=== PATIENT | male | born 1970 | race Caucasian/White ===

== ENCOUNTER → 2019-09-16 | Outpatient (CLI) | payer BC, OTHER ==
[~2019-09-16] MED LIST: CLARITIN-D 121 EAC1 PO; CLOBETASOL TOP; CRESTOR10 MG PO; VIBRAMYCIN 100100 MG PO
== END ==
LOC: SJCVCIMAG 09:51
PROVIDERS: ATTEND Family Medicine
DX: M79.662 Pain in left lower leg (principal); M79.89 Other specified soft tissue disorders

== ENCOUNTER → 2019-09-19 | Outpatient (CLI) | payer BC, OTHER ==
[~2019-09-19] VITALS: Ht 182.9 cm; Wt 131.8 kg
[2019-09-19 13:27] VITALS: BP 158/81
[2019-09-19 13:40] LABS: HEMATOCRIT 47.7 % (42.0-52.0); HEMOGLOBIN 16.6 gm/dL (14.0-18.0); MCH 33.6 pg (26.0-34.0); MCHC 34.7 g/dL (28.0-37.0); MCV 96.7 fL (80.0-100.0); RBC 4.93 mil/uL (4.50-6.00); RDW 15.5 % (10.5-14.5)
[2019-09-19 14:01] LABS: CALCIUM 9.1 mg/dL (8.5-10.1)
== END | disposition home or self-care (01) ==
LOC: CATH 09:40
PROVIDERS: ATTEND Nuclear Medicine Nuclear Cardiology
DX: I87.1 Compression of vein (principal); I87.323 Chronic venous hypertension (idiopathic) with inflammation of bilateral lower extremity; E78.5 Hyperlipidemia, unspecified; I73.9 Peripheral vascular disease, unspecified; Z98.890 Other specified postprocedural states; Z79.899 Other long term (current) drug therapy; Z87.891 Personal history of nicotine dependence

== ENCOUNTER → 2019-10-21 | Outpatient (CLI) | payer BC, OTHER | LOC: SJCVCIMAG 09:05 | PROVIDERS: ATTEND Nuclear Medicine Nuclear Cardiology | DX: I10 Essential (primary) hypertension (principal); M79.89 Other specified soft tissue disorders ==

== ENCOUNTER → 2019-11-13 | Outpatient (CLI) | payer BC, OTHER | LOC: HYPER 09:53 | PROVIDERS: ATTEND Emergency Medicine | DX: I89.0 Lymphedema, not elsewhere classified (principal); I87.303 Chronic venous hypertension (idiopathic) without complications of bilateral lower extremity; R60.0 Localized edema; L40.9 Psoriasis, unspecified; L40.52 Psoriatic arthritis mutilans; L71.9 Rosacea, unspecified; E66.01 Morbid (severe) obesity due to excess calories; Z79.01 Long term (current) use of anticoagulants; Z79.82 Long term (current) use of aspirin; Z87.891 Personal history of nicotine dependence; Z95.820 Peripheral vascular angioplasty status with implants and grafts; Z68.39 Body mass index [BMI] 39.0-39.9, adult ==

== ENCOUNTER → 2019-11-27 | Outpatient (CLI) | payer BC, OTHER | LOC: HYPER 09:20 | PROVIDERS: ATTEND Emergency Medicine | DX: I87.303 Chronic venous hypertension (idiopathic) without complications of bilateral lower extremity (principal); I89.0 Lymphedema, not elsewhere classified; R60.0 Localized edema; L40.9 Psoriasis, unspecified; L40.52 Psoriatic arthritis mutilans; L71.9 Rosacea, unspecified; E66.01 Morbid (severe) obesity due to excess calories; Z79.01 Long term (current) use of anticoagulants; Z79.82 Long term (current) use of aspirin; Z68.39 Body mass index [BMI] 39.0-39.9, adult; Z87.891 Personal history of nicotine dependence ==

== ENCOUNTER → 2019-12-18 | Outpatient (CLI) | payer BC, OTHER | LOC: HYPER 09:05 | PROVIDERS: ATTEND Emergency Medicine | DX: I89.0 Lymphedema, not elsewhere classified (principal); I87.303 Chronic venous hypertension (idiopathic) without complications of bilateral lower extremity; R60.0 Localized edema; L40.52 Psoriatic arthritis mutilans; L71.9 Rosacea, unspecified; Z79.01 Long term (current) use of anticoagulants; Z79.82 Long term (current) use of aspirin; Z87.891 Personal history of nicotine dependence ==